=== PATIENT | male | born 1955 | race Caucasian/White ===

== ENCOUNTER 2022-05-10 16:39 | Outpatient (CLI) | payer MEDICARE, SELFPAY ==
[2022-05-10 14:44] LABS: Chloride* 108 mmol/L (96-114); Sodium* 140 mmol/L (135-149)
[2022-05-10 14:45] LABS: Potassium* 4.4 mmol/L (3.6-5.1)
[2022-05-10 14:47] LABS: Blood Urea Nitrogen* 15 mg/dL (7-30); Carbon Dioxide* 28 mmol/L (20-32); Cholesterol* 142 mg/dL (90-199); Estimated Glomerular Filt Rate 82 ml/min
[2022-05-10 14:48] LABS: Glucose* 96 mg/dL (60-115); HDL Cholesterol* 45 mg/dL (>=40); LDL Cholesterol Calculated 70 mg/dL (<100); Triglycerides* 134 mg/dL (40-149)
[2022-05-10 15:25] LABS: PSA Screen* 0.69 ng/mL (0.10-4.00)
== END 2022-05-10 16:40 | disposition home or self-care (01) ==
PROVIDERS: PCP Family Medicine; Visit Provider Family Medicine
DX: Z00.00 Encounter for general adult medical examination without abnormal findings (principal); E78.00 Pure hypercholesterolemia, unspecified; Z12.5 Encounter for screening for malignant neoplasm of prostate
CPT/HCPCS: 80048; 80061; 84153

== ENCOUNTER 2022-08-09 07:58 | Outpatient (CLI) | payer MEDICARE, SELFPAY | END 2022-08-09 07:59 | disposition home or self-care (01) | LOC: NFLDREF 08-10 11:30 | PROVIDERS: PCP Family Medicine; Referring Provider Family Medicine; Visit Provider Family Medicine | DX: E78.00 Pure hypercholesterolemia, unspecified (principal) | CPT/HCPCS: 80061 ==

== ENCOUNTER 2023-02-28 07:18 | Outpatient (CLI) | payer MEDICARE, SELFPAY ==
--- NOTE | 2023-02-28 07:15 | CRLHL7_ITS ---
For Patients: As a result of the Cures Act, medical imaging exams and procedure reports are released immediately into your electronic medical record. You may view this report before your referring provider. If you have questions, please contact your health care provider. Examination: US abdominal aorta Indication: Abdominal aortic aneurysm screening. Technique: De Paz scale and color Doppler images of the aorta and common iliac arteries are obtained. Comparison: None Findings: Proximal aorta: 2.4 x 2.1 cm Mid aorta: 1.9 x 1.6 cm Distal aorta: 1.6 x 1.5 cm Right common iliac artery: 1.0 x 0.9 cm Left common iliac artery: 1.1 x 1.0 cm Impression: No abdominal aortic aneurysm. Dictated by Terence Okeefe MD @ 02/28/2023 8:32:18 AM (Electronically Signed)
== END 2023-02-28 07:19 | disposition home or self-care (01) ==
PROVIDERS: PCP Family Medicine; Visit Provider Family Medicine
DX: Z13.6 Encounter for screening for cardiovascular disorders (principal); R10.9 Unspecified abdominal pain
CPT/HCPCS: 76706

== ENCOUNTER 2023-05-02 14:06 | Outpatient (CLI) | payer MEDICARE, SELFPAY | END 2023-05-02 14:07 | disposition home or self-care (01) | PROVIDERS: PCP Family Medicine; Visit Provider Family Medicine | DX: Z12.5 Encounter for screening for malignant neoplasm of prostate (principal); E78.2 Mixed hyperlipidemia | CPT/HCPCS: 80061; G0103 ==

== ENCOUNTER 2023-07-28 09:08 | Outpatient (CLI) | payer MEDICARE, SELFPAY | END 2023-07-28 09:09 | disposition home or self-care (01) | PROVIDERS: PCP Family Medicine; Visit Provider Family Medicine | DX: R71.8 Other abnormality of red blood cells (principal); R53.83 Other fatigue; Z13.29 Encounter for screening for other suspected endocrine disorder; Z13.21 Encounter for screening for nutritional disorder | CPT/HCPCS: 80053; 82306; 82728; 83540; 84443 ==

== ENCOUNTER 2023-08-15 07:02 | Outpatient (CLI) | payer MEDICARE, SELFPAY ==
--- NOTE | 2023-08-15 07:15 | US_ITS ---
Patient: SEAN SILVA Facility:?[facility] Patient ID:?[id number] Site Patient ID:?[id number]. Site :?[id number] Study:?US-Abdomen Abdomen Complete-08/15/2023 8:17:37 AM Ordering Physician:Jean Mccloud Final Report: INDICATION: Abdominal pain TECHNIQUE: Conventional two-dimensional grayscale ultrasound of the abdomen. COMPARISON: None. FINDINGS: No gallstone is evident. A number of gallbladder polyps are demonstrated, the largest measuring up to 8 mm in diameter. No gallbladder wall thickening or pericholecystic fluid is demonstrated. The patient is reportedly not tender over the gallbladder. No biliary ductal dilation is evident. The common bile duct measures mm. Fatty change is demonstrated in the liver. The liver is otherwise unremarkable. The spleen is within normal limits. The kidneys are normal in appearance, with no evidence of hydronephrosis. The pancreas is within normal limits. The visualized portion of the abdominal aorta and inferior vena cava are unremarkable. IMPRESSION: 1. Gallbladder polyps, the largest measuring up to 8 mm. 2. Fatty liver. Dictated by Johny Lennon MD @ 08/15/2023 9:26:51 AM Signed by:?Johny Lennon MD @08/15/2023 9:26:51 AM (Electronic Signature)
== END 2023-08-15 07:03 | disposition home or self-care (01) ==
LOC: US 07:04
PROVIDERS: PCP Family Medicine; Visit Provider Family Medicine
DX: R10.9 Unspecified abdominal pain (principal); K82.4 Cholesterolosis of gallbladder; K76.0 Fatty (change of) liver, not elsewhere classified
CPT/HCPCS: 76700

== ENCOUNTER 2023-09-06 09:23 | Outpatient (CLI) | payer MEDICARE, SELFPAY | END 2023-09-06 09:24 | disposition home or self-care (01) | LOC: LKVREF 10:22 | PROVIDERS: PCP Family Medicine; Visit Provider Family Medicine | DX: Z01.818 Encounter for other preprocedural examination (principal); I10 Essential (primary) hypertension; E78.00 Pure hypercholesterolemia, unspecified; R53.83 Other fatigue; K82.4 Cholesterolosis of gallbladder | CPT/HCPCS: 80061; 84270; 84402; 84403 ==

== ENCOUNTER 2023-09-08 08:07 | Day surgery (SDC) | payer MEDICARE, SELFPAY ==
[2023-09-08] VITALS (12 sets, daily range): BP systolic 120–148; BP diastolic 63–83; PULSE 51–74; RESP 14–18; TEMP 35.9–36.6; O2SAT 93–97; BMI 31.8
[2023-09-08] MEDS: SODIUM CHLORIDE 0.9 % (FLUSH) 10 ML SYRINGE IVF (08:40)
[2023-09-08] MEDS: LACTATED RINGERS 1000 ML 1,000 ML 100 ML IV (08:40)
--- NOTE | 2023-09-08 09:28 | PM.GSPRC ---
Operative Note Date of procedure: 09/08/23 Pre-op diagnosis: Gallbladder polyps and upper abdominal pain Post-op diagnosis: Same Type of Procedure: Laparoscopic cholecystectomy Indications: The patient is a 68-year-old male who developed left-sided abdominal pain and bloating which was intermittently associated with eating. Workup revealed gallbladder polyps, the largest being 8 mm. Guidelines state that cholecystectomy is recommended in patients with symptomatic gallbladder polyps and or age over 60 with gallbladder polyps greater than 6 mm. We discussed that it is unclear whether his symptoms were secondary to his gallbladder, however, again because of his age and the size, cholecystectomy is recommended because of malignancy risk. We also discussed repeat ultrasound in 6 months if he was hesitant to undergo surgery. After discussion of risks and benefits, he agreed to proceed with surgery Procedure Description: After discussing the risks and benefits of the procedure, the patient signed informed consent.? The operative site was marked and the patient was brought to the operating room and placed on the operating table in supine position.? Care was taken to pad the patient's pressure points.?? The patient was then intubated by anesthesia.?? The operative site was then prepped and draped in the usual sterile fashion.? A time-out was then performed. Entrance to the abdomen was gained via a 5 mm Visiport in the left upper quadrant. The abdomen was insufflated and briefly surveyed for signs of injury. There was none. A 10 mm umbilical port was placed as well as 2 working ports along the right costal margin, all under direct vision. The patient was then placed in reverse Trendelenburg position with the right side up. The gallbladder fundus was grasped and retracted cephalad. There were adhesions between the omentum and the right lobe of the liver. These made retraction of the liver somewhat limited. A small amount of dissection was needed to free omental adhesions from the gallbladder. The infundibulum was grasped. A combination of hook cautery and blunt dissection was used to carefully dissect out the cystic duct and artery until they could clearly be seen entering the gallbladder without any intervening structures. The gallbladder was dissected off the cystic plate to achieve the critical view. Once this was achieved the cystic duct and artery were each clipped with 2 clips proximally and 1 clip distally and transected with the scissors. The gallbladder was then taken off of the liver bed and removed from the abdomen using an Endo-Catch bag. The gallbladder bed was surveyed for hemostasis which appeared adequate. A small amount of bile which had spilled was suctioned from the abdomen. The umbilical port fascia was closed with 0 Vicryl. The remaining ports were then removed and the abdomen desufflated. The skin was closed with absorbable subcuticular suture. Sterile dressings were then applied. The gallbladder was examined on the back table. There were no obvious large polyps, however the gallbladder contained multiple tiny gallstones. Instrument sponge and needle counts were correct at the end of the case. The patient was then woken and transferred to the PACU in stable condition. ? The patient tolerated the procedure well. Findings: Gallbladder with some omental adhesions noted. Tiny gallstones noted within the gallbladder. Anesthesia: GETA Surgeon: Ml Downs MD Estimated blood loss (mL): 5 Specimen: Gallbladder Condition: stable Disposition: PACU
[2023-09-08] MEDS: CEFAZOLIN 2 GM INJ IVP (09:43)
[2023-09-08] MEDS: BUPIVACAINE 0.25% 30 ML INJECTION (10:40)
--- NOTE | 2023-09-08 10:54 | W.ANESCHARGE ---
Anesthesia Charges Start Date/Time Anesthesia Start Date: 09/08/23 Anesthesia Start Time: 09:28 Stop Date/Time Anesthesia Stop Date: 09/08/23 Anesthesia Stop Time: 11:01
[2023-09-08] MEDS: ACETAMINOPHEN 325 MG TABLET 650 MG PO (11:50)
--- NOTE | 2023-09-08 12:45 | W.ANESCHARGE ---
Anesthesia Charges Start Date/Time Anesthesia Start Date: 09/08/23 Anesthesia Start Time: 09:28 Stop Date/Time Anesthesia Stop Date: 09/08/23 Anesthesia Stop Time: 11:01
== END 2023-09-08 12:20 | disposition home or self-care (01) ==
PROVIDERS: PCP Family Medicine; Visit Provider Surgery
PROC: 0FT44ZZ Resection of Gallbladder, Percutaneous Endoscopic Approach (ICD-10-PCS; CPT 47562; principal; 2023-09-08 09:30)
DX: K82.4 Cholesterolosis of gallbladder (principal); R14.0 Abdominal distension (gaseous); R10.12 Left upper quadrant pain
CPT/HCPCS: 47562; 00790; 88304; A9270; J0330; J0665; J0690; J1100; J1170; J2405; J2704; J3010; J3490; J7120

== ENCOUNTER 2024-03-01 10:17 | Outpatient (CLI) | payer MEDICARE, SELFPAY | END 2024-03-01 10:18 | disposition home or self-care (01) | LOC: LKVREF 10:19 | PROVIDERS: PCP Family Medicine; Visit Provider Emergency Medicine | DX: R00.2 Palpitations (principal) | CPT/HCPCS: 84443 ==

== ENCOUNTER 2024-05-24 08:00 | Outpatient (CLI) | payer MEDICARE, SELFPAY | END 2024-05-24 08:01 | disposition home or self-care (01) | LOC: NFLDREF 05-28 03:03 | PROVIDERS: PCP Family Medicine; Referring Provider Family Medicine; Visit Provider Family Medicine | DX: E78.00 Pure hypercholesterolemia, unspecified (principal); Z12.5 Encounter for screening for malignant neoplasm of prostate | CPT/HCPCS: 80053; 80061; G0103 ==

== ENCOUNTER 2024-05-31 14:42 | Outpatient (CLI) | payer MEDICARE, SELFPAY ==
[2024-05-31 14:30] VITALS: BP 128/68; PULSE 80; RESP 16
--- NOTE | 2024-05-31 14:30 | W.PM.STED ---
Stress Test Note Date Date Seen: 05/31/24 Date of test: 05/31/24 Providers Referring provider: Terence Pearson Primary care provider: Jean Jean Baptiste Stress test physician: Ariana Delgado Stress Test Note Stress test ordered: Stress Echo Indication for test: Abnormal calcium score Stress test medicine: None Results discussion: Resting EKG: Sinus rhythm, 64 beats per minute. Incomplete right bundle-branch block. Resting blood pressure: 120/73 Stress test: Patient has consented on standard treadmill exercise Juan Carlos protocol stress echo and agrees to proceed. Patient is exercised on the treadmill following the Juan Carlos protocol. Patient requested to stop after meeting his target heart rate and exercise capacity, started to feel some discomfort in a knee that had had prior meniscal repair. Patient was able to exercise for a total of 10 minutes 24 seconds achieving 12.1 Mets. Had a maximum heart rate of 135 beats per minute which was 105% of a calculated target heart rate of 128. Patient had a maximal blood pressure 160/86, rate pressure product of 21,600. Patient had no chest pain, no cardiac symptoms. There was no evidence of any arrhythmia, no diagnostic ischemia. Impression: Subjectively negative, objectively negative EKG portion of this stress test: Patient is discharged from this stress test in stable condition. We will await the echo images to couple this for a full formal diagnostic. Follow up suggested: Patient will await contact from Dr. Pearson regarding this stress test once echo images are read to couple this for a full formal report.
== END 2024-05-31 14:43 | disposition home or self-care (01) ==
LOC: STRESS 14:43
PROVIDERS: PCP Family Medicine; Visit Provider Family Medicine
DX: I25.10 Atherosclerotic heart disease of native coronary artery without angina pectoris (principal); I34.0 Nonrheumatic mitral (valve) insufficiency
CPT/HCPCS: 93016; 93325; 93351

== ENCOUNTER 2024-08-23 08:37 | Outpatient (CLI) | payer MEDICARE, SELFPAY | END 2024-08-23 08:38 | disposition home or self-care (01) | LOC: NFLDREF 08-26 11:11 | PROVIDERS: PCP Family Medicine; Referring Provider Family Medicine; Visit Provider Family Medicine | DX: N40.0 Benign prostatic hyperplasia without lower urinary tract symptoms (principal); R68.82 Decreased libido; E78.00 Pure hypercholesterolemia, unspecified; R53.83 Other fatigue; Z12.5 Encounter for screening for malignant neoplasm of prostate | CPT/HCPCS: 80061; 84270; 84402; 84403; G0103 ==

== ENCOUNTER 2025-02-28 07:25 | Outpatient (CLI) | payer MEDICARE, SELFPAY | END 2025-02-28 07:26 | disposition home or self-care (01) | LOC: FRMREF 07:26 | PROVIDERS: PCP Family Medicine; Visit Provider Family Medicine | DX: L29.0 Pruritus ani (principal); L30.4 Erythema intertrigo | CPT/HCPCS: 87177; 87209 ==

== ENCOUNTER 2025-04-12 08:09 | Outpatient (CLI) | payer MEDICARE, SELFPAY | END 2025-04-12 08:10 | disposition home or self-care (01) | LOC: NFLDREF 04-17 21:57 | PROVIDERS: PCP Family Medicine; Referring Provider Family Medicine; Visit Provider Family Medicine | DX: Z13.9 Encounter for screening, unspecified (principal) | CPT/HCPCS: 80053; 80061; G0103 ==

== ENCOUNTER 2025-04-15 15:26 | Emergency (ER) | payer MEDICARE, SELFPAY ==
--- OUTSIDE RECORDS SUMMARY | 2021-02-10 03:01 | XMS_ITS | Continuity of Care Document ---
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 Name Role Phone Janell Beard CRNA Unavailable Unavailable Allergies, Adverse Reactions, Alerts Substance Reaction Status Criticality No Known Allergies Active No Inform ation Medications Medication Instructions Dosage Effective Dates (start - stop) Status Comments alfuzosin ER 10 mg tablet,extended release 24 hr take 1 tablet by oral route every day 10 MG - Active Avodart 0.5 mg Cap take 1 capsule (0.5M G) by oral route every day 0.5 MG - Active Procedures Procedure Date Colonoscopy Flex; W/remov Les- Colonoscopy Flex; W/bx 1/mx Level Iv-surg Path Gross/micro Colonoscopy Flex; Dx (sep Pro) 11 Advance Directives Directive Yes / No Effective Date File Name No Information Encounters Encounter Description Practice Location Reason(s) For Visit Diagnoses Date Provider Providers Copied on Encounter [facility], [address] [address], [place], [place], [id number], [place] tel:[phone] [facility] No Information Kisha Maciel. [address] [facility], [address], [id number], [place]. tel:[phone] Referring Provider: Pato Mendez MD P, [address], [address]. tel:[phone] [facility], [address] [address], [place], [place], [id number], tel:[phone] [facility] GI Symptoms or Concerns (chief complaint) Screening ColonoscopyColo rectal polypsDiverticu la of colonBenign neoplasm of cecumBenign neoplasm of sigmoid colonEncounter for screening for malignant neoplasm of colonDvrtclos of lg int w/o perforation or abscess w/o bleedingBenign neoplasm of cecum 1 Vanessa Whyte. [address] [facility], [facility] [address], [place], [id number], . tel:[phone] Referring Provider: Referral Self, USE FOR SELF REFERRALS. [facility], [address] [address], [place], [place], [id number], tel:[phone] [facility] No Information [address] [facility], [facility] [address], [place], [id number], [place]. tel:[phone] [facility], [address] [address], [place], [place], [address], tel:[phone] [facility] Colon Cancer ScreeningDivert iculosis Of Colon 1 No Information Family History Family Member Type Diagnosis Age At Onset Daughter Problem (finding) alcoholism Sister Problem (finding) alcoholism Mother Problem (finding) Irritable bowel syndrom e Father Problem (finding) alcoholism Immunizations Vaccine Date Status Comments SARS-COV-2 (COVID-19) vaccin e, vector non-replicating, recombinant spike protein-Ad26, preservative free, 0.5 mL administered Note: [facility] bi- directional interface ; Source: Other Registry zoster vaccine recombinant administered N ote: [facility] bi-directional interface ; Source: Other Registry zoster vaccine recombinant administered N ote: [facility] bi-directional interface ; Source: Other Registry tetanus toxoid, adsorbed administered Not e: [facility] bi-directional interface ; Source: Other Registry tetanus and diphtheria toxoi ds, adsorbed, preservative free, for adult use (2 Lf of tetanus toxoid and 2 Lf of diphtheria toxoid) administered Note: [facility] bi-direct ional interface ; Source: Other Registry Payers Payer name Insurance type Covered republican ID Authoriza tilucretia(s) Blue Cross Medicare Advantage [id number] Social History Type Description Quantity Date Captured Comments Sex Male Smoking Status No Information Chief Complaint And Reason For Visit No Information Reason For Referral Reason For Referral No Information History Of Present Illness Encounter Date Complaint History Of Prese nt Illness GI Symptoms or Concerns Functional Status Date Functional Assessmen t No Information Instructions Date Instruction Additional Infor mation Colon Polyps Related to Scree peña Colonoscopy Colon Cancer Prevention Related to Screening Colonoscopy High Fiber Diet Related to Scree peña Colonoscopy Diverticulosis/Diverticulitis Re lated to Screening Colonoscopy High Fiber Diet Related to Scree peña Colonoscopy Assessments Type Assessment Date No Information Patient Care Teams Name Effective Dates (start - stop) Status Members No Information
[2025-04-15 15:42] VITALS: BP 100/72; PULSE 90; RESP 20; TEMP 36.7; O2SAT 98; BMI 30.1
--- NOTE | 2025-04-15 16:19 | ED_ITS ---
HPI - General Adult General Date Seen: 04/15/25 Chief complaint: Arrhythmia/Palpitations Stated complaint: EKG Time Seen by Provider: 04/15/25 16:01 History of Present Illness HPI narrative: Patient is a 70-year-old male who was at clinic earlier for routine physical found to be in AFib with rapid ventricular rate and told to come here. Since arriving, he is back in normal sinus rhythm. He does note a couple of episodes of previous atrial fibrillation, anticoagulation is never been recommended as his episodes are few and far between. Medical history is negative for hypertension, congestive heart failure or any other cardiac history. He has had a ZIO patch previously which did not show any subclinical atrial fibrillation, he does not take any medications for rate control. He has coffee every day but does not have any other substances, does not drink, and occasional cigar but does not smoke otherwise. He is not symptomatic with his atrial fibrillation although he was aware that his heart rate was fast. He thought it was just taking a while to settle down after playing pickleball for 2-1/2 hours and then doing another 30 minute workout and then the sauna. He is quite active generally. Related Data Previous Rx's ?Medication ?Instructions ?Recorded miconazole nitrate 2 % topical 1 applic topical BID 4 weeks #85 03/01/25 powder grams alfuzosin 10 mg tablet,extended 10 mg PO QDAY #90 tabs 04/15/25 release 24 hr dutasteride 0.5 mg capsule 0.5 mg PO QDAY #90 caps Allergies Allergy/AdvReac Type Severity Reaction Status Date / Time codeine AdvReac Intermediate Jittery Verified 04/15/25 15:36 Review of Systems Status of ROS: Reports: 10 or more systems reviewed and unremarkable except as noted in History and below [facility] Medical History Cough ?R05.9 - Cough, unspecified (ICD-10) Insomnia ?G47.00 - Insomnia, unspecified (ICD-10) Nasal congestion ?R09.81 - Nasal congestion (ICD-10) Hypercholesteremia ?E78.00 - Pure hypercholesterolemia, unspecified (ICD-10) Encounter for routine history and physical examination of adult ?Z00.00 - Encounter for general adult medical examination without abnormal findings (ICD-10) Encounter for initial preventive physical examination covered by Medicare ?Z00.00 - Encounter for general adult medical examination without abnormal findings (ICD-10) Encounter for annual wellness exam in Medicare patient ?Z00.00 - Encounter for general adult medical examination without abnormal findings (ICD-10) Encounter for annual physical exam ?Z00.00 - Encounter for general adult medical examination without abnormal findings (ICD-10) Benign prostatic hyperplasia (10/17/12) ?N40.0 - Benign prostatic hyperplasia without lower urinary tract symptoms (ICD-10) Surgical History S/P vasectomy ?Z98.52 - Vasectomy status (ICD-10) H/O left knee surgery ?Z98.890 - Other specified postprocedural states (ICD-10) Family History Father Diabetes Alcohol dependence Drug dependence Heart disease Mother Stroke Social History Narrative: Current non-smoker, but past smoking history, no alcohol use. 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 What is your current living situation?: declined to answer Problems where you live: no known problems In the past 12 months, utilities in danger of being shut off: declined to answer In past 12 months, lack of transportation kept you from medical appts, meetings, work, or getting things needed for daily living: declined to answer In the past 12 mos, have been you worried that your food would run out before you had money to buy more?: declined to answer In the past 12 mos, the food you bought just didn't last and you didn't have money to buy more?: never true Smoking Status: Light tobacco smoker What tobacco products do you use: cigars Do you use any of these nicotine containing products: Smokeless Tobacco Nicotine containing products detail: gum How often do you have a drink containing alcohol: never How often do you have six or more drinks on one occasion: Never AUDIT-C Alcohol total score: 0 Non-prescribed substance use: denies use Caffeine: Yes How often does anyone, including family, friends and others, physically hurt you : never How often does anyone, including family, friends and others, insult or talk down to you: never How often does anyone, including family, friends and others, threaten you with harm: never How often does anyone, including family, friends and others, scream or curse at you: never Health Related Social Needs: unsheltered homelessness (Z59.02) Exam Narrative: Exam Narrative: Vital signs reviewed In general, an alert, nontoxic elderly male. Head: Normocephalic, atraumatic. Eyes: Sclera clear. Pupils equal and reactive. ENT: Mucous membranes moist. Neck: Supple without adenopathy. Heart: Regular rate and rhythm without murmur. Lungs: Clear. No increased work of breathing, crackles or wheezes. Abdomen: Soft, nontender to palpation. Extremities: Well perfused, pulses intact. No significant edema. Neurologic: Alert, conversant. Speech fluent, face symmetric. Moves all extremities equally. Skin: Warm, dry well perfused. Affect: Normal. Const: Vital Signs, click to edit/add: Vital Signs - 24 hr 04/15/25 15:42 Temperature 98.1 F Pulse Rate [Pulse Oximeter] 90 Respiratory Rate 20 Blood Pressure [Ri ght Upper Arm] 100/72 Pulse Oximetry 98 Oxygen Delivery Me thod Room Air Course Course ED Course: In EKG here shows a sinus rhythm, ventricular rate of 83, no acute ST segment changes, unremarkable T-waves. Normal indices. I reviewed his records, the note from his clinic visit is not completed and the EKG is not scans I am not able to look at that. We had a long discussion about atrial fibrillation and general management and expectations. Given that he has these very rare episodes and is not really symptomatic during them, has never required cardioversion or other treatment, just resolved on his own, not sugars anything specifically that would be recommended at this time. He has seen Cardiology, has had a stress test about a year ago, has already had home monitoring. He had routine labs done last Tuesday, electrolytes were normal at that time. I am going to check a TSH as well as a magnesium level. If these are normal, will plan to discharge. If he is having more frequent or bothersome or persistent episodes, would consider another conversation with Cardiology. Labs reviewed and normal, patient eager for to discharge home. Reasons to return, follow-up discussed. Diagnosis: Paroxysmal atrial fibrillation. Vital Signs Vital signs: Initial Vital Signs Temperature 98.1 F 04/15/25 15:42 Temperature Source Temporal Artery Scan 04/15/25 15:42 Pulse Rate 90 04/15/25 15:42 Respiratory Rate 20 04/15/25 15:42 Blood Pressure 100/72 04/15/25 15:42 Blood Pressure Mean 81 04/15/25 15:42 Pulse Oximetry 98 04/15/25 15:42 Oxygen Delivery Method Room Air 04/15/25 15:42 Vital Signs Temperature 98.1 F 04/15/25 15:42 Pulse Rate 90 04/15/25 15:42 Respiratory Rate 20 04/15/25 15:42 Blood Pressure 100/72 04/15/25 15:42 Pulse Oximetry 98 04/15/25 15:42 Oxygen Delivery Method Room Air 04/15/25 15:42 Temperature 98.1 F 04/15/25 15:42 Pulse Rate 90 04/15/25 15:42 Respiratory Rate 20 04/15/25 15:42 Blood Pressure 100/72 04/15/25 15:42 Pulse Oximetry 98 04/15/25 15:42 Oxygen Delivery Method Room Air 04/15/25 15:42 Medical Decision Making Lab Data Labs: Lab Results 04/15/25 Range/Units 16:29 Magnesium 2.3 (1.5-2.6) mg/dL TSH 0.877 (0.270-4.200) uIU/mL Discharge Plan Discharge Clinical Impression: Atrial fibrillation with rapid ventricular response Patient Disposition: Home, Self-Care Condition: Improved Instructions: A-fib (Atrial Fibrillation) (ED) Additional Instructions: I reviewed your labs from Tuesday, they did check electrolytes in these are normal. I checked a magnesium today which is also normal. Your thyroid function test is pending but this can take quite a while, so I am going to likely go home. If this is significantly abnormal we will let you know in you can follow that up with your primary care doctor. Otherwise, for now I do not think we need to make any significant changes. As discussed, if you are noting more frequent episodes of atrial fibrillation or if you are not converting on your own and needing electric cardioversion, another conversation with Cardiology about options would be reasonable. For recurrent AFib, is reasonable as long as you are not having significant symptoms, to wait 6-12 hours to see if you can vert. If not I would recommend coming to the ER as cardioversion is safer when it is done earlier after the onset of atrial fibrillation. Prescriptions: No Action alfuzosin 10 mg tablet extended release 24 hr 10 mg PO QDAY Qty: 90 3RF dutasteride 0.5 mg capsule 0.5 mg PO QDAY Qty: 90 3RF miconazole nitrate 2 % powder 1 applic topical BID 28 Days Qty: 85 4RF Rx Instructions: apply powder to gluteal cleft twice daily until cleared plus one week Follow Up/Referrals: Jean Jean Baptiste MD [Primary Care Provider, Family Practice] Stand Alone Forms: [facility] Info Instructions
[2025-04-15 17:30] LABS: TSH With Reflex to FT4* 0.877 uIU/mL (0.270-4.200)
== END 2025-04-15 17:18 | disposition home or self-care (01) ==
PROVIDERS: Emergency Provider Emergency Medicine; PCP Family Medicine
DX: I48.20 Chronic atrial fibrillation, unspecified (principal)
CPT/HCPCS: 36415; 83735; 84443; 93005; 99284